=== PATIENT | female | born 1980 | race Caucasian/White ===

== ENCOUNTER 2023-05-11 04:00 | Day surgery (SDC) | payer OTHER ==
[2023-05-11] VITALS (258 sets, daily range): BP systolic 87–145; BP diastolic 45–94
[~2023-05-11] VITALS: Ht 177.8 cm; Wt 56.4 kg
[2023-05-11 08:32] LABS: BASO% 0.9 % (0-3); EOS% 12.2 % (0-8); HEMATOCRIT 32.5 % (37.0-47.0); IMMATURE GRANULOCYTES 0.2 % (0.0-5.0); LYMPH% 36.2 % (15-41); MEAN CELL VOLUME 92.9 fL CALC (80.0-100.0); MEAN CORPUSCULAR HGB 31.4 pG CALC (26.0-32.0); MEAN CORPUSCULAR HGB CONC 33.8 g/dL CAL (32.0-36.0); MONO% 6.7 % (2-13); NEUT# 2.81 thou/uL (2.00-7.15); NEUT% 43.8 % (42-76); RED BLOOD COUNT 3.5 mill/uL (4.20-5.60); RED CELL DISTRI WIDTH 12.1 % (11.5-15.5)
[2023-05-11 08:46] LABS: ALBUMIN 3.7 g/dL (3.2-5.0); ALKALINE PHOSPHATASE 71 u/l (38-126); ANION GAP 7 (6-22 (CALC)); BILIRUBIN, TOTAL 0.5 mg/dL (0.02-1.3); BUN 14 mg/dL (7-17); BUN/CREATININE RATIO 21 (12-20 (CALC)); CARBON DIOXIDE 31 mmol/l (22-30); CHLORIDE 103 mmol/l (95-108); CREATININE 0.7 mg/dL (0.5-1.0); GFR FOR AFR.AMER. > 60 ML/MIN (>=60 (CALC)); GFR OTHER RACES > 60 ML/MIN (>=60 (CALC)); POTASSIUM 4.1 mmol/l (3.5-5.1); SGOT/AST 37 u/l (14-36); SODIUM 137 mmol/l (137-146); TOTAL PROTEIN 6.2 g/dL (6.3-8.2)
[2023-05-11] MEDS ORDERED: XANAX0.5 MG PO (09:44)
[2023-05-11] MEDS ORDERED: CHARCOAL200 MG PO (10:33)
[2023-05-11] MEDS ORDERED: ALEVE220 M2 PO (10:39)
[2023-05-11] MEDS ORDERED: OMEPRAZOLE DR40 MG PO (10:50)
[2023-05-11] MEDS ORDERED: NALTREXONE50 MG PO (13:54)
[2023-05-11] MEDS ORDERED: KLONOPIN2 MG PO (13:55)
[2023-05-11] MEDS ORDERED: CLONIDINE0.1 MG PO (13:55)
[2023-05-12 04:22] VITALS: BP 107/62
[2023-05-12 06:19] LABS: BASO% 0.2 % (0-3); HEMOGLOBIN 10.2 g/dl (12.0-16.0); IMMATURE GRANULOCYTES 0.1 % (0.0-5.0); LYMPH% 5.9 % (15-41); MEAN CELL VOLUME 88.7 fL CALC (80.0-100.0); MEAN CORPUSCULAR HGB 31.2 pG CALC (26.0-32.0); MEAN CORPUSCULAR HGB CONC 35.2 g/dL CAL (32.0-36.0); MONO% 1.7 % (2-13); NEUT# 9.81 thou/uL (2.00-7.15); NEUT% 92.1 % (42-76); RED BLOOD COUNT 3.27 mill/uL (4.20-5.60); RED CELL DISTRI WIDTH 11.9 % (11.5-15.5)
[2023-05-12 06:34] LABS: ALBUMIN 3.3 g/dL (3.2-5.0); ALKALINE PHOSPHATASE 74 u/l (38-126); BUN 11 mg/dL (7-17); BUN/CREATININE RATIO 17 (12-20 (CALC)); CHLORIDE 105 mmol/l (95-108); CREATININE 0.6 mg/dL (0.5-1.0); GFR FOR AFR.AMER. > 60 ML/MIN (>=60 (CALC)); GFR OTHER RACES > 60 ML/MIN (>=60 (CALC)); MAGNESIUM 2.1 mg/dL (1.6-2.3); POTASSIUM 3.6 mmol/l (3.5-5.1); SGOT/AST 33 u/l (14-36); SODIUM 135 mmol/l (137-146); TOTAL PROTEIN 5.8 g/dL (6.3-8.2)
[2023-05-12 06:40] LABS: ANION GAP 10 (6-22 (CALC)); BILIRUBIN, TOTAL 0.8 mg/dL (0.02-1.3); CARBON DIOXIDE 24 mmol/l (22-30)
[2023-05-12 06:47] VITALS: BP 100/57
[2023-05-12 12:34] VITALS: BP 100/57
== END 2023-05-12 16:50 | disposition home or self-care (01) | DRG 897 ==
LOC: ANR 04:00 → MS2 04:00 → ANR 09:00
PROVIDERS: ATTEND Anesthesiology
DX: F11.20 Opioid dependence, uncomplicated (principal)
CPT/HCPCS: J0131; J2354; J3475; S0164